=== PATIENT | male | born 1980 | race Caucasian/White ===

== ENCOUNTER 2017-12-29 13:56 | Emergency (ER) | payer BC, SELFPAY ==
[2017-12-29 13:57] VITALS: BP 147/95; PULSE 99; RESP 16; TEMP 37.2; O2SAT 100; BMI 26.6
--- NOTE | 2017-12-29 14:15 | RAD_ITS ---
STUDY: X-RAY - RIGHT WRIST REASON FOR EXAM: Male, 37 years old. Fall. Pain to TECHNIQUE: 3 view(s) of the wrist were obtained. COMPARISON: None. FINDINGS: There is no evidence of fracture or dislocation. There are no significant degenerative changes. There are no radiodense foreign bodies. RAD/Wrist min 3 Views IMPRESSION: No fracture or dislocation. Electronically Signed: Maurizio Holloway, at 15:15 EDT Tel , Service support ,
--- NOTE | 2017-12-29 14:56 | ED.VISSUMM ---
- ER Visit Summary Date of Service: 12/29/17 Chief Complaint: Right wrist pain History of Present Illness: The patient is a 37 M who is right-hand dominant presents with right wrist pain after falling last evening while skateboarding with children. He denies paresthesia, anesthesia or motor weakness. He does complain of swelling of his wrist. He denies injury to his fingers or elbow. He denies history of prior injury. He has no other complaints. Physical Examination: There is swelling of the right wrist. There is no pain palpation over the anatomical snuffbox or with extraluminal thumb. There is pain palpation over the carpal bones and there is fullness/effusion noted. There is no pain abrasion over the distal radius or ulna. There is no pain palpation over the metacarpal bones or phalanges. Median, radial and ulnar function intact. Capillary refill is normal. No subungual hematoma of any digits. Test Results: Three-view x-ray of the wrist was obtained with no evidence of fracture, subluxation or dislocation. There is no volar fat pad noted. Emergency Department Course and Treatment: X-ray was obtained to evaluate for carpal bone fracture or proximal metacarpal fracture. Clinically patient does not have a navicular fracture. Treatment Plan: Cock-up splint anti-inflammatories rest and ice Disposition: Discharge to follow-up with Dr. Alonzo Burleson Impression: Right wrist sprain status post fall initial encounter This note was generated with [employer] dictation software. It may contain incorrect words, spelling, and punctuation that were not noted in review of the chart prior to signing ED Disposition - Plan for ED Patient: Disposition: Home or Assisted Living Chief Complaint: Upper Extremity Injury Instructions: ED Sprain Wrist Referrals: Marilyn Mock NP-C [Primary Care Provider] - Alonzo Burleson MD [STAFF PHYSICIAN] - 5-7 Days Additional Instructions: Take either 4 Advil every 8 hours or 2 Aleve every 12 hours for the next 3-5 days for pain. Wear splint during the day for comfort and immobilization.
== END 2017-12-29 15:25 | disposition home or self-care (01) ==
PROVIDERS: Emergency Provider Emergency Medicine; PCP Nurse Practitioner Family
DX: S63.501A Unspecified sprain of right wrist, initial encounter (principal); V00.131A Fall from skateboard, initial encounter; Y93.51 Activity, roller skating (inline) and skateboarding; Y92.9 Unspecified place or not applicable; Z87.891 Personal history of nicotine dependence
CPT/HCPCS: 73110; 99282

== ENCOUNTER → 2019-06-17 16:04 | Outpatient (CLI) | payer OTHER, MEDICAID, SELFPAY ==
[2019-06-17 17:57] LABS: Hemoglobin 14.1 g/dL (13.0-16.5); Mean Corp Hgb Conc 32.8 g/dL (32-36); Mean Corpuscular Hgb 31.3 pg (27.0-32.0); Mean Corpuscular Volume 95.3 fL (80-94); Mean Platelet Vol. 9.6 fl (6.2-12.0); Platelet Count 345 K/mm3 (150-450); RBC Distribution Width CV 14.1 % (11.6-14.6); RBC Distribution Width SD 49.8 fl (35.1-43.9); Red Blood Count 4.51 M/mm3 (4.6-6.2); White Blood Count 9.9 K/mm3 (4.4-11.0)
[2019-06-17 18:14] LABS: Erythrocyte Sedimentation Rate 21 mm/hr (0-15)
[2019-06-17 18:21] LABS: CRP < 2.90 mg/L (0.0-3.0)
== END ==
PROVIDERS: PCP Nurse Practitioner Family; Referring Provider Internal Medicine Gastroenterology; Visit Provider Internal Medicine Gastroenterology
DX: K50.90 Crohn's disease, unspecified, without complications (principal); K52.9 Noninfective gastroenteritis and colitis, unspecified
CPT/HCPCS: 36415; 85027; 85652; 86140

== ENCOUNTER → 2020-09-02 15:48 | Outpatient (CLI) | payer MEDICAID, SELFPAY ==
[2020-09-05 10:37] LABS: Hepatitis B Surface Antigen Non-Reactive (Nonreactive)
[2020-09-07 03:06] LABS: QNTFERON TB Mitogen Value 0.18 IU/mL (.); QNTFERON TB Nil Value 0 IU/mL (.); QNTFERON TB1+ Ag Value 0 IU/mL (.); QNTFERON TB2+ Ag Value 0 IU/mL (.)
[2020-09-07 13:37] LABS: QNTIFERON TB Positive Criteria Indeterminate (Negative)
== END ==
PROVIDERS: PCP Nurse Practitioner Family; Referring Provider Internal Medicine Gastroenterology; Visit Provider Internal Medicine Gastroenterology
DX: K50.90 Crohn's disease, unspecified, without complications (principal)
CPT/HCPCS: 36415; 86480; 87340

== ENCOUNTER → 2020-10-03 13:48 | Outpatient (CLI) | payer MEDICAID, SELFPAY ==
--- NOTE | 2020-10-03 13:50 | VDLE_ITS ---
Reason For Study: Lt posterior leg pain RIGHT LEFT CFV is compressible, spontaneous, phasic, GSV is normal. competent and demonstrates normal CFV is compressible, spontaneous, phasic, augmentation. competent, and demonstrates normal Procedure augmentation. This is a venous duplex using B-mode, color FV prox-mid is compressible with normal flow and spectral Doppler. venous flow. Exam performed in department. Acute deep vein thrombosis is noted in the A preliminary report was called and/or faxed Left FV distal, PopV, T/P trunk, PreoV, PTV to Martha GREEN. Pt taken to ED for further and SoleusV. testing. VL/Venous Duplex US, Unilateral Interpretation Summary Acute deep vein thrombosis is noted in the distal left femoral vein. Acute deep vein thrombosis is noted in the left popliteal vein. Acute deep vein thrombosis is noted in the le ft tibio-peroneal trunk. Acute deep vein thrombosis is noted in the left peroneal vein. Acute scotty p vein thrombosis is noted in the left posterior tibial vein. Acute deep vein thrombosis is noted in the left soleus vein. The left common femoral vein and proximal and mid-femoral vein are patent and compressible. The left great saphenous vein is patent and compressible. Ordering Physician: Marilyn Mock Referring Physician: Marilyn Mock Performed By: Randi Chapman RVT and Student
== END ==
PROVIDERS: PCP Nurse Practitioner Family; Referring Provider Nurse Practitioner Family; Visit Provider Nurse Practitioner Family
DX: I26.99 Other pulmonary embolism without acute cor pulmonale (principal); I82.412 Acute embolism and thrombosis of left femoral vein; I82.432 Acute embolism and thrombosis of left popliteal vein; I82.452 Acute embolism and thrombosis of left peroneal vein; I82.442 Acute embolism and thrombosis of left tibial vein; I82.462 Acute embolism and thrombosis of left calf muscular vein; K50.90 Crohn's disease, unspecified, without complications; D64.9 Anemia, unspecified; I25.2 Old myocardial infarction; Z79.52 Long term (current) use of systemic steroids; Z79.899 Other long term (current) drug therapy
CPT/HCPCS: 71275; 80048; 82274; 84484; 85025; 85610; 85730; 87426; 93005; 93971; 96361; 96374; 96375; 99285; J7040; Q9967; A4216

== ENCOUNTER 2020-10-03 14:46 | Emergency (ER) | payer MEDICAID, SELFPAY ==
[2020-10-03 14:47] VITALS: BP 106/68; PULSE 98; RESP 18; TEMP 36.2; O2SAT 97; BMI 25.0
--- NOTE | 2020-10-03 15:51 | CT_ITS ---
HISTORY: sob, LLE acute DVT EXAMINATION: CTA Chest WO/W Contrast Injection TECHNIQUE: Helically acquired images were obtained of the chest following IV contrast as per pulmonary angiogram protocol with 3D reconstructions. A radiation dose optimization technique was used for this scan. IV Contrast dosage and agent: IV 100mL [id number]-[id number] COMPARISON: None FINDINGS: LUNGS, PLEURA AND LARGE AIRWAYS: No masses, consolidation, or edema. No pleural effusion or thickening. No pneumothorax. THYROID: No thyroid lesions. PULMONARY ARTERIES: Normal in caliber. Filling defects in segmental branches to the right upper and left lower lobes. AORTA AND GREAT VESSELS: No aneurysm or dissection. HEART AND PERICARDIUM: Heart size is normal. No pericardial effusion. MEDIASTINUM AND MELISSA: No mediastinal or hilar adenopathy. Esophagus is unremarkable. No hiatal hernia. UPPER ABDOMEN: No acute pathology. Bilateral adrenal nodules 2.9 cm on the right, 1.6 cm on the left. BONES: No acute or aggressive abnormality. CT/CTA Chest W/WO Contrast IMPRESSION: Study positive for pulmonary embolism. Individualized dose optimization techniques were used for this CT. at 7505 Reported and signed by: Jose Valle MD N.B. : The above Results were Read Back by Jose Valle MD to Dr. Reinaldo Lara MD, and understanding confirmed on 10/03/2020 17:37:35 (ET). Electronically Signed: Jose Valle MD at 17:34 EDT Tel , Service support ,
--- NOTE | 2020-10-03 15:52 | EKG12_ITS ---
Test Reason : Blood Pressure : / mmHG Vent. Rate : 083 BPM Atrial Rate : 083 BPM P-R Int : 148 ms QRS Dur : 094 ms QT Int : 382 ms P-R-T Axes : 024 -15 061 degrees QTc Int : 448 ms Normal sinus rhythm Possible Left atrial enlargement Incomplete right bundle branch block Left ventricular hypertrophy Nonspecific T wave abnormality Abnormal ECG Confirmed by GINGER DASILVA, JASON ([id number]), editor continuity and script VALENTIN CHOPRA ([id number]) on 10/05/2020 9:28:22 AM Referred By: EDPHYS Confirmed By:JASON MILES MD
--- NOTE | 2020-10-03 15:53 | EDS_ITS ---
HPI History of Present Illness Chief Complaint: Shortness of Breath Informant: patient Narrative Narrative: Patient sent over from radiology department with acute left lower extremity DVT rule out PE. Discharged from [facility] a week ago for Crohn's flare currently on steroids. No current rectal bleeding. He states initially admitted at [facility] 2 to 3 weeks ago for concerns of NM he did have a heart cath that was negative. History of hypertension. States he is transferred due to no GI physician at [facility]. He was not on DVT prophylaxis medications due to his bleeding issues. He reports he did have SCDs. After leaving the hospital developed pain in his left lower extremity behind his knee. Saw his PCP who ordered for an ultrasound today. Report was sent over the patient noting acute DVT left FV distal, popliteal vein, TP trunk, preOV, PTV, SoleusV. He reports he has been having dyspnea since then worse with exertion. Denies history of blood clots in the past. Denies recent travel. He had a heart cath 2 to 3 weeks ago, and being treated for his Crohn's. Prior similar symptoms: No PFSH PFSH Medical History (Updated 10/03/20 @ 21:[address] Reinaldo Lara DO) Crohn's disease DVT (deep venous thrombosis) Past heart attack Home Medications levothyroxine 125 mcg PO DAILY 01/17/15 [History Last Taken 12/29/17] multivitamin [Daily Multiple Vitamin] 1 ea PO DAILY 09/16/15 [History Last Taken 12/29/17] mesalamine [Apriso] 1 cap PO DAILY 01/31/17 [History Last Taken 12/29/17] mercaptopurine 50 mg PO DAILY 12/29/17 [History Last Taken 12/29/17] ustekinumab [Stelara] 90 mg IM DAILY 12/29/17 [History Last Taken 10/30/17] cyclobenzaprine 5 mg PO PRN PRN 10/03/20 [History Last Taken Unknown] dicyclomine 20 mg PO PRN PRN 10/03/20 [History Last Taken Unknown] diltiazem HCl 240 mg PO DAILY 10/03/20 [History Last Taken Unknown] indapamide 2.5 mg PO DAILY 10/03/20 [History Last Taken Unknown] losartan 50 mg PO DAILY 10/03/20 [History Last Taken Unknown] metoprolol succinate 25 mg PO DAILY 10/03/20 [History Last Taken Unknown] prednisone 10 mg PO DAILY 10/03/20 [History Last Taken Unknown] Allergy/AdvReac Type Severity Reaction Status Date / Time Penicillins Allergy Hives Verified 10/03/20 14:49 Social History Smoking Status: Never smoker ROS ROS ED Constitutional Constitutional ED: Denies chills, fever(s) or sweats Eyes Eyes: Denies change in vision ENT ENT ED: Denies dysphagia or sore throat Cardiovascular Cardiovascular: Denies chest pain, leg edema, palpitations or racing heartbeat Respiratory/Chest Respiratory/Chest: Reports cough and dyspnea; Denies dyspnea on exertion Gastrointestinal Gastrointestinal: Denies abdominal pain, diarrhea, nausea or vomiting Genitourinary Genitourinary ED: Denies dysuria, hematuria or urinary frequency Musculoskeletal Musculoskeletal: Reports other Details: Left leg pain with DVT ; Denies back pain, extremity pain or neck pain Integumentary Denies rash or wounds Neurologic Neurologic: Denies headache(s), paresthesias or weakness EXAM Physical Exam Const Vital Signs: 10/03/20 14:47 10/03/20 16:10 10/03/20 18:00 Temperature 97.1 F L Temperature Source Temporal Pulse Rate 98 83 71 Respiratory Rate 18 14 17 Blood Pressure 106/68 118/74 126/72 H Blood Pressure Mean 80 88 90 Pulse Ox 97 97 96 Oxygen Delivery Method Room Air Room Air Room Air 10/03/20 20:00 Temperature Temperature Source Pulse Rate 87 Respiratory Rate 15 Blood Pressure 135/84 H Blood Pressure Mean 101 Pulse Ox 97 Oxygen Delivery Method Room Air Positive well nourished and well developed General Appearance ED: well developed and NAD HEENT Reports moist mucous membranes normocephalic and atraumatic Eyes PERRL, EOMs intact bilaterally and conjunctivae normal General Eye ED: Yes normal appearance of both eyes Neck no lymphadenopathy and supple General: Negative for tenderness Chest Wall Chest: Negative for tenderness Resp normal respiratory effort and normal air movement Effort and Inspection: symmetric chest movement; Negative for respiratory distress Cardio regular rate, regular rhythm and no murmurs Peripheral Pulses: pulses 2+ throughout GI normal to inspection, nondistended, normoactive bowel sounds and non-tender Palpation: Negative for guarding or rebound tenderness present Back/Spine no CVA tenderness and no thoracic nor lumbar tenderness Extremity normal to inspection Extremity Narrative: Left lower extremity: No swelling and pulses intact there is tenderness popliteal region. General Extremety ED: Negative for edema or tenderness General Extremity: Negative for edema Neuro oriented x3 and no sensory deficits noted Sensorium / Orientation: awake and alert Skin no rashes or lesions noted and no wounds MDM MDM MDM Narrative Medical decision making narrative: Patient vital signs stable pulse ox normal no respiratory distress. Ultrasound confirming left lower extremity DVT. He was sent for laboratory studies hemoglobin 9.8 down from 14 in June of last year. From reported history a recent Crohn's flare with GI bleed. He states he was not transfused blood. Rectal exam with no bloody stools however Hemoccult was positive. CTA chest resulted discussion radiology segmental PE right upper lobe and left lower lobe. There is no heart strain. His troponin was negative. Due to his Hemoccult positive and current treatment with his Crohn's, I did not start anticoagulation due to high risk for GI bleed. With patient's age at 39, Crohn's history with both DVT and PE, do feel he will benefit from higher level of care. He was down at [facility] for his Crohn's flare, I spoke with transfer line regarding his recent work-up and current findings. They reported he had a hemoglobin of 8.4 on their discharge which is lower than currently. He was not transfused there. Hemodynamically stable. He is accepted to [facility] medicine service to [facility] in [place]. Patient family updated. Lab Data Attestation: I reviewed the patient's lab results. Labs: Laboratory Results - last 24 hr 10/03/20 10/03/20 10/03/20 15:45 15:45 16:12 WBC 10.7 RBC 3.21 L Hgb 9.8 L Hct 33.1 L MCV 103.1 H MCH 30.5 MCHC 29.6 L RDW Std Deviation 82.9 H RDW Coeff of Christoph 22.6 H Plt Count 417 MPV 8.7 Neut % (Auto) Not Reportable Absolute Neuts (auto) 8.4 H Absolute Lymphs (auto) 1.72 Neutrophils % (Manual) 66 Band Neutrophils % 14 H Lymphocytes % (Manual) 16 L Monocytes % (Manual) 1 Metamyelocytes % 1 Myelocytes % 2 H Diff Path Review May foll Atypical Lymphocytes 3+ Platelet Estimate ADEQUATE RBC Morphology NORM C+C Polychromasia 2+ PT 13.1 INR 1.1 APTT 31.9 Sodium 133 L Potassium 4.8 Chloride 97 L Carbon Dioxide 28.0 Anion Gap 8 BUN 17 Creatinine 0.95 Estim Creat Clear Calc 112.32 Est GFR (MDRD) Af Amer 112 Est GFR (MDRD) Non-Af 93 BUN/Creatinine Ratio 17.9 Glucose 137 H Calcium 11.0 H Troponin I < 0.015 Radiography Diagnostic Testing: Radiology Impression Chest CTA 10/03/20 15:51 IMPRESSION: Study positive for pulmonary embolism. Individualized dose optimization techniques were used for this CT. at 1735 Reported and signed by: Jose Valle MD N.B. : The above Results were Read Back by Jose Valle MD to Dr. Reinaldo Lara MD, and understanding confirmed on 10/03/2020 17:37:35 (ET). Electronically Signed: Jose Valle MD at 17:34 EDT Tel , Service support , ADDENDUM: 10/03/20 184 IMPRESSION: Study positive for pulmonary embolism. Individualized dose optimization techniques were used for this CT. at 1735 Reported and signed by: Jose Valle MD N.B. : The above Results were Read Back by Jose Valle MD to Dr. Reinaldo Lara MD, and understanding confirmed on 10/03/2020 17:37:35 (ET). Electronically Signed: Jose Valle MD at 17:34 EDT Tel , Service support , ADDENDUM: 10/03/20 184 IMPRESSION: Study positive for pulmonary embolism. Individualized dose optimization techniques were used for this CT. at 1735 Reported and signed by: Jose Valle MD Electronically Signed: Jose Valle MD at 17:57 EDT Tel , Service support , N.B. : The above Results were Read Back by Jose Valle MD to Dr. Reinaldo Lara MD, and understanding confirmed on 10/03/2020 17:37:35 (ET). ADDENDUM: 10/03/20 184 IMPRESSION: Study positive for pulmonary embolism. Individualized dose optimization techniques were used for this CT. at 1735 Reported and signed by: Jose Valle MD Electronically Signed: Jose Valle MD at 17:57 EDT Tel , Service support , N.B. : The above Results were Read Back by Jose Valle MD to Dr. Reinaldo Lara MD, and understanding confirmed on 10/03/2020 17:37:35 (ET). ADDENDUM: 10/03/20 184 IMPRESSION: Study positive for pulmonary embolism. Individualized dose optimization techniques were used for this CT. at 1735 Reported and signed by: Jose Valle MD Electronically Signed: Jose Valle MD at 17:57 EDT Tel , Service support , N.B. : The above Results were Read Back by Jose Valle MD to Dr. Reinaldo Lara MD, and understanding confirmed on 10/03/2020 17:37:35 (ET). ADDENDUM: 10/03/20 1849 IMPRESSION: Study positive for pulmonary embolism. Individualized dose optimization techniques were used for this CT. at 1735 Reported and signed by: Jose Valle MD Electronically Signed: Jose Valle MD at 17:57 EDT Tel , Service support , N.B. : The above Results were Read Back by Jose Valle MD to Dr. Reinaldo Lara MD, and understanding confirmed on 10/03/2020 17:37:35 (ET). EKG Initial EKG: Attestation: I personally reviewed and interpreted this EKG as follows: Comments: Sinus rate of 83, no ST changes, isolated T wave inversion in aVL. Nonspecific. Discharge Plan Triage Chief Complaint: Shortness of Breath ED Provider: Reinaldo Lara Dx/Rx/DC Orders Clinical Impression: Pulmonary embolism, Acute deep vein thrombosis (DVT) of left lower extremity, History of Crohn's disease, Anemia Prescriptions: No Action levothyroxine 125 MCG tablet 125 mcg PO DAILY RF: 0 multivitamin [Daily Multiple] 1 EACH tablet 1 ea PO DAILY RF: 0 mesalamine [Apriso] 375 MG Cap.Er.24h 1 cap PO DAILY RF: 0 mercaptopurine 50 MG tablet 50 mg PO DAILY RF: 0 ustekinumab [Stelara] 90 MG/M syringe 90 mg IM DAILY RF: 0 losartan 50 mg tablet 50 mg PO DAILY RF: 0 prednisone 10 mg tablet 10 mg PO DAILY RF: 0 indapamide 2.5 mg tablet 2.5 mg PO DAILY RF: 0 diltiazem HCl 240 mg capsule,extended release 24hr 240 mg PO DAILY RF: 0 dicyclomine 20 mg tablet 20 mg PO PRN PRN (Reason: Cramps) RF: 0 metoprolol succinate 25 mg tablet extended release 24 hr 25 mg PO DAILY RF: 0 cyclobenzaprine 5 mg tablet 5 mg PO PRN PRN (Reason: Pain) RF: 0 Primary Care Provider: Marilyn Mock NP Referrals: Marilyn Mock NP, SETUP TECHNICIAN-C [Primary Care Provider] - Disposition Disposition: Transfer to another type [facility]
[2020-10-03 16:07] LABS: Hematocrit 33.1 % (40-54); Hemoglobin 9.8 g/dL (13.0-16.5); Mean Corp Hgb Conc 29.6 g/dL (32-36); Mean Corpuscular Hgb 30.5 pg (27.0-32.0); Mean Corpuscular Volume 103.1 fL (80-94); Mean Platelet Vol. 8.7 fl (6.2-12.0); POSITIVE COUNT YES; POSITIVE MORPHOLOGY YES; Platelet Count 417 K/mm3 (150-450); RBC Distribution Width CV 22.6 % (11.6-14.6); RBC Distribution Width SD 82.9 fl (35.1-43.9); Red Blood Count 3.21 M/mm3 (4.6-6.2); White Blood Count 10.7 K/mm3 (4.4-11.0)
[2020-10-03 16:10] VITALS: BP 118/74; PULSE 83; RESP 14; O2SAT 97
[2020-10-03 16:14] LABS: Differential Indicated MANUAL DIFF
[2020-10-03] MEDS: Acetaminophen 500 MG Tablet 1000 MG PO (16:21)
[2020-10-03 16:29] LABS: Absolute Lymphocyte Count 1.72 X10^3/uL (0.83-4.51); Absolute Neutrophil Count 8.4 X10^3/uL (2.0-7.7); Metamyelocyte 1 % (0-1); Neutrophil-Band 14 % (0-5); Neutrophil-Segmented 66 % (47-70)
[2020-10-03 16:30] LABS: Atypical Lymphocyte 3+ %; Lymphocyte 16 % (19-41); Monocyte 1 % (0-10); Myelocyte 2 % (0-0); Platelet Estimate ADEQUATE (ADEQ)
[2020-10-03 16:31] LABS: Polychromasia 2+; Red Cell Morphology NORM C+C NORMAL (NORM C&C)
[2020-10-03 16:32] LABS: Anion Gap 8 (5-15); BUN 17 mg/dL (7-18); BUN/Creat Ratio 17.9 RATIO (10-20); Chloride 97 mmol/L (98-107); Creatinine, Serum 0.95 mg/dL (0.70-1.30); EST Glomerular Filtration Rate 93 mL/min (>60); Est Glom Filt Rate - Afr Amer 112 mL/min (>60); Estimated Creatinine Clearance 112.32 ml/min; Glucose 137 mg/dL (74-106); Potassium 4.8 mmol/L (3.5-5.1); Sodium Level 133 mmol/L (136-145)
[2020-10-03 16:58] LABS: International Normalized Ratio 1.1; Prothrombin Time (Protime)PT. 13.1 SECONDS (11.7-14.9)
[2020-10-03 16:59] LABS: Partial Thromboplast Time 31.9 Seconds (24.1-36.2)
[2020-10-03 18:00] VITALS: BP 126/72; PULSE 71; RESP 17; O2SAT 96
[2020-10-03 20:00] VITALS: BP 135/84; PULSE 87; RESP 15; O2SAT 97
[2020-10-03] MEDS: Morphine 4 MG/ML Syringe IV (21:02)
[2020-10-03 21:41] VITALS: BP 132/80; PULSE 88; RESP 20; O2SAT 96
[2020-10-03 22:00] VITALS: BP 133/83; PULSE 92; RESP 15; O2SAT 98
[2020-10-03] MEDS: fentaNYL 100 MCG/2 ML Ampul 50 MCG IV (22:43)
--- NOTE | 2020-10-03 23:21 | ED.RN ---
PER [place] NURSE WHO SPOKE TO [facility] [employer], DO NOT NEED TO CALL REPORT. PER [place] STAFF, REPORT WAS CALLED EARLIER BY NORMA OBANDO. [facility] WILL BE GIVEN REPORT ONCE THEY ARRIVE TO [facility].
[2020-10-04] VITALS: BP 146/82; PULSE 82; RESP 20; O2SAT 96
[2020-10-04 11:59] LABS: Pathologist Review Reviewed
== END 2020-10-04 00:38 | disposition other institution (70) ==
PROVIDERS: Emergency Provider Emergency Medicine; PCP Nurse Practitioner Family
DX: I26.99 Other pulmonary embolism without acute cor pulmonale (principal); I82.412 Acute embolism and thrombosis of left femoral vein; I82.432 Acute embolism and thrombosis of left popliteal vein; I82.452 Acute embolism and thrombosis of left peroneal vein; I82.442 Acute embolism and thrombosis of left tibial vein; I82.462 Acute embolism and thrombosis of left calf muscular vein; K50.90 Crohn's disease, unspecified, without complications; D64.9 Anemia, unspecified; I25.2 Old myocardial infarction; Z79.52 Long term (current) use of systemic steroids; Z79.899 Other long term (current) drug therapy
CPT/HCPCS: 71275; 80048; 82274; 84484; 85025; 85610; 85730; 87426; 93005; J7040; Q9967; A4216

== ENCOUNTER → 2020-10-12 10:41 | Outpatient (CLI) | payer MEDICAID, SELFPAY ==
[2020-10-03 14:47] VITALS: BMI 25.0
[2020-10-12 12:19] LABS: Hematocrit 36.3 % (40-54); Hemoglobin 10.6 g/dL (13.0-16.5); Mean Corp Hgb Conc 29.2 g/dL (32-36); Mean Corpuscular Hgb 30.8 pg (27.0-32.0); Mean Corpuscular Volume 105.5 fL (80-94); Mean Platelet Vol. 8.9 fl (6.2-12.0); POSITIVE MORPHOLOGY YES; Platelet Count 424 K/mm3 (150-450); RBC Distribution Width CV 21.2 % (11.6-14.6); RBC Distribution Width SD 81.5 fl (35.1-43.9); Red Blood Count 3.44 M/mm3 (4.6-6.2); White Blood Count 15.3 K/mm3 (4.4-11.0)
[2020-10-12 12:30] LABS: Iron 60 ug/dL (65-175)
[2020-10-12 12:31] LABS: Scan Indicated on CBC? Y/N YES- FLAGS NOTED
[2020-10-12 12:37] LABS: Erythrocyte Sedimentation Rate 97 mm/hr (0-20)
[2020-10-12 12:42] LABS: Differential Comment SCANNED
== END ==
PROVIDERS: PCP Nurse Practitioner Family; Referring Provider Internal Medicine Gastroenterology; Visit Provider Internal Medicine Gastroenterology
DX: K51.90 Ulcerative colitis, unspecified, without complications (principal)
CPT/HCPCS: 36415; 83540; 85027; 85652; 86140

== ENCOUNTER 2021-06-21 10:43 | Emergency (ER) | payer MEDICAID, SELFPAY ==
[2021-06-21 10:44] VITALS: BP 135/98; PULSE 100; RESP 17; TEMP 36.4; O2SAT 100; BMI 28.2
--- NOTE | 2021-06-21 11:03 | CT_ITS ---
EXAM: CT ABDOMEN AND PELVIS WITHOUT INTRAVENOUS CONTRAST CLINICAL INDICATION: Pain TECHNIQUE: Helically acquired images were obtained of the abdomen and pelvis without intravenous contrast. This CT exam was performed using one or more of the following dose reduction techniques: automated exposure control, adjustment of the mA and/or kV according to patient size, and/or use of iterative reconstruction technique. This report was created using [employer] report generation technology. COMPARISON: CTA chest 10/03/2020. FINDINGS: LOWER THORAX: Unremarkable. Lung bases are clear. No cardiomegaly. No significant pericardial effusion. ABDOMEN: LIVER: Unremarkable. Homogeneous. GALLBLADDER AND BILE DUCTS: Unremarkable. No calcified gallstones. No gallbladder distention or wall edema. No intra- or extrahepatic biliary ductal dilation. PANCREAS: Unremarkable. No focal cystic mass. SPLEEN: Unremarkable. Normal size without focal cystic or solid mass. ADRENALS: 2.8 x 2.2 cm right adrenal mass and 1.5 x 1 cm left adrenal mass. KIDNEYS AND URETERS: 7.8 x 5.4 mm partially obstructing calculus in the left UPJ causing minimal left hydronephrosis. 4 mm nonobstructing calculus in the left lower renal pole and the adjacent 2 mm nonobstructing calculus in the left lower renal pole. 2 mm nonobstructing calculus in the mid portion of the left kidney and 1 mm nonobstructing calculus in the left upper renal infundibulum. Ill-defined round hypodensity in the left upper renal parenchyma is presumably cyst. This is unchanged. 1 mm nonobstructing calculus in the middle infundibulum of right kidney. No right hydronephrosis. STOMACH AND BOWEL: Unremarkable. No stomach or bowel distention. No focal inflammatory change. PELVIS: APPENDIX: Normal. BLADDER: Unremarkable. REPRODUCTIVE: Unremarkable as visualized. No mass. ABDOMEN and PELVIS: INTRAPERITONEAL SPACE: Unremarkable. No ascites or other fluid collection. No free air. BONES/JOINTS: Pronounced L5-S1 disc space height narrowing with endplate sclerosis and degenerative vacuum phenomenon. Minimal escape of degenerative vacuum phenomenon behind the lower L5 vertebral body is suggestive of posterior annular tear. Moderately pronounced stenosis of the right L5-S1 intervertebral neural foramen and moderate stenosis of the left L5-S1 intervertebral neural foramen. No suspicious lytic or blastic abnormality. SOFT TISSUES: Unremarkable. No discrete abdominal or pelvic wall hernia. VASCULATURE: Unremarkable. Abdominal aorta is non-dilated. LYMPH NODES: Unremarkable. No enlarged lymph nodes. CT/Abdomen/Pelvis without Cont IMPRESSION: 1. 7.8 x 5.4 mm partially obstructing calculus in the left UPJ causing minimal left hydronephrosis. 2. 4 mm and 2 mm adjacent nonobstructing calculi in the left lower renal pole, 2 mm nonobstructing calculus in the midportion of the left kidney and 1 mm nonobstructing calculus in the left upper renal infundibulum. 3. 1 mm nonobstructing calculus in the middle infundibulum the right kidney. No hydronephrosis. 4. 2.8 x 2.2 cm solid mass in the right adrenal gland and 1.5 x 1 cm solid mass in the left adrenal gland. This is unchanged when compared to CTA chest of 10/03/2020. ACR White Paper guidelines (Gustavo et al. JACR 2017; 14(8):9760-8897) recommend a low dose, non-contrast adrenal CT or chemical-shift adrenal MRI follow-up study. 5. Ill-defined hypodense lesion in the left upper renal parenchyma is presumably cyst. This has a CT number of 12.80 [place] units. This is unchanged. ACR White Paper guidelines (Herts, et al. JACR 2018; 15(2):264-273) suggest no follow-up is necessary. 6. Pronounced L5-S1 disc space height narrowing with endplate sclerosis, posterior annular tear with minimal escape of degenerative vacuum phenomenon behind the lower L4 vertebral body, moderately pronounced stenosis of the right L5-S1 intervertebral neural foramen and moderate stenosis of the left L5-S1 intervertebral neural foramen. Electronically Signed: Vernon Willard MD at 11:53 EST ,
[2021-06-21 11:05] VITALS: BP 135/98; PULSE 100; RESP 17; TEMP 36.4; O2SAT 100
[2021-06-21] MEDS: 0.9% Normal Saline 1,000 ML 1000 ML IV (11:13)
[2021-06-21 11:14] LABS: Mucous, Urine 0 SEEN /hpf (<or=2+); White Blood Cells 0 SEEN /hpf (0-5)
[2021-06-21 11:15] LABS: Absolute Lymphocyte Count 2.06 X10^3/uL (0.83-4.51); Basophil# 0.05 X10^3/uL; Basophil% 0.6 % (0-1); Eosinophil# 0.06 X10^3/uL; Eosinophils% 0.7 % (0-5); Hematocrit 47.7 % (40-54); Hemoglobin 15.9 g/dL (13.0-16.5); Lymphocyte # 2.06 X10^3/ul (0.83-4.51); Mean Corp Hgb Conc 33.3 g/dL (32-36); Mean Corpuscular Hgb 31.8 pg (27.0-32.0); Mean Corpuscular Volume 95.4 fL (80-94); Mean Platelet Vol. 9.1 fl (6.2-12.0); Monocyte# 0.71 X10^3/uL; Monocyte% 7.9 % (0-10); NRBC Flagged by Analyzer 0 % (0-5); Neutrophil # 6.03 X10^3/uL (2.7-7.7); Neutrophil % 67.5 % (47-70); Platelet Count 328 K/mm3 (150-450); RBC Distribution Width CV 14.9 % (11.6-14.6); RBC Distribution Width SD 52.8 fl (35.1-43.9); White Blood Count 8.9 K/mm3 (4.4-11.0)
[2021-06-21 11:17] LABS: Color, Urine Amber (Yellow); Glucose, Dipstick Normal (Normal); Ketone-Dipstick 5 mg/dl (Negative); Leukocyte Esterase-Dipstick 25 /ul (Negative); Nitrite-Dipstick Negative (Negative); Occult Blood-Urine 250 /ul (Negative); Protein-Dipstick 100 mg/dl (Negative); Specific Gravity, Urine 1.015 (1.002-1.030); Urine Bilirubin Dipstick Negative (Negative); Urine Clarity Cloudy (Clear); Urine Urobilinogen Normal (Normal)
--- NOTE | 2021-06-21 11:20 | EDS_ITS ---
HPI History of Present Illness Chief Complaint: Flank Pain Informant: patient Narrative Narrative: Patient presents with concern for kidney stone. He states about 2 to 2-1/2 weeks ago he noticed his urine was a little bit darker but not bloody. Over the last couple days he has had what looks to be blood in the urine. He has had some very mild pain in the right flank that radiates to the groin. However he states the pain really is not bad at all. He has had a kidney stone before and that was a concern. However, he also has Crohn's disease. When he has exacerbation of Crohn's the pain is usually not right lower quadrant but more in his epigastric area. He is not having that now. He states his bowel habits are his normal. There is no blood in the stool. He does not feel as though this is likely in an exacerbation of his Crohn's. Nothing consistently makes his current symptoms better or worse. [facility] Medical History Crohn's disease DVT (deep venous thrombosis) Past heart attack Home Medications levothyroxine 125 mcg PO DAILY 01/17/15 [History Last Taken 12/29/17] multivitamin [Daily Multiple Vitamin] 1 ea PO DAILY 09/16/15 [History Last Taken 12/29/17] mesalamine [Apriso] 1 cap PO DAILY 01/31/17 [History Last Taken 12/29/17] mercaptopurine 50 mg PO DAILY 12/29/17 [History Last Taken 12/29/17] ustekinumab [Stelara] 90 mg IM DAILY 12/29/17 [History Last Taken 10/30/17] cyclobenzaprine 5 mg PO PRN PRN 10/03/20 [History Last Taken Unknown] dicyclomine 20 mg PO PRN PRN 10/03/20 [History Last Taken Unknown] diltiazem HCl 240 mg PO DAILY 10/03/20 [History Last Taken Unknown] indapamide 2.5 mg PO DAILY 10/03/20 [History Last Taken Unknown] losartan 50 mg PO DAILY 10/03/20 [History Last Taken Unknown] metoprolol succinate 25 mg PO DAILY 10/03/20 [History Last Taken Unknown] prednisone 10 mg PO DAILY 10/03/20 [History Last Taken Unknown] ondansetron 4 mg PO Q8H PRN #10 tab 06/21/21 [Rx Last Taken Unknown] oxycodone-acetaminophen [Percocet] 1 tab PO Q6H PRN 3 Days #10 tab 06/21/21 [Rx Last Taken Unknown] tamsulosin [Flomax] 0.4 mg PO DAILY #7 cap 06/21/21 [Rx Last Taken Unknown] Allergy/AdvReac Type Severity Reaction Status Date / Time Penicillins Allergy Hives Verified 06/21/21 10:44 Social History Smoking Status: Never smoker ROS ROS ED Constitutional Constitutional ED: Denies chills, fever(s), subjective or sweats ENT ENT ED: Denies rhinorrhea Cardiovascular Cardiovascular: Denies chest pain or palpitations Respiratory/Chest Respiratory/Chest: Denies cough or dyspnea Gastrointestinal Gastrointestinal: Reports abdominal pain; Denies constipation, diarrhea, melena, nausea or vomiting Genitourinary Genitourinary ED: Reports hematuria; Denies dysuria or urinary frequency Musculoskeletal Musculoskeletal: Reports back pain; Denies arthralgias or myalgias Integumentary Denies rash Neurologic Neurologic: Denies headache(s) Psychiatric Psychiatric: Reports depression Endocrine Endocrinology: Denies polydipsia or polyuria Allergic/Immunologic Allergic/Immunologic ED: Denies mouth swelling or urticaria EXAM Physical Exam Const Vital Signs: 06/21/21 10:44 06/21/21 11:05 06/21/21 11:07 Temperature 97.6 F L 97.6 F L Temperature Source Temporal Temporal Pulse Rate 100 100 Respiratory Rate 17 17 Respiratory Effort Normal Non-Labored Respiratory Pattern Normal Blood Pressure 135/98 H 135/98 H Blood Pressure Mean 110 110 Pulse Ox 100 100 Oxygen Delivery Method Room Air Room Air Positive well nourished and well developed General Appearance ED: well developed and NAD; Negative for cyanotic or diaphoretic HEENT Reports moist mucous membranes Eyes General Eye ED: Negative for pale conjunctiva or scleral icterus Neck no JVD Chest Wall inspection of chest normal Resp normal respiratory effort and clear to auscultation bilaterally Cardio regular rate and regular rhythm GI normal to inspection, nondistended, normoactive bowel sounds, non-tender and non-distended Palpation: soft; Negative for tender or guarding Back/Spine no CVA tenderness Extremity normal to inspection Neuro Sensorium / Orientation: alert Skin no rashes or lesions noted and no wounds MDM MDM MDM Narrative Medical decision making narrative: Patient's blood work shows normal CBC. Electrolytes are also unremarkable. Calcium is minimally elevated which is chronic. Urine shows red cells but no sign of infection. CT scan shows multip le renal stones as well as a large proximal left ureteral stone. With minimal left hydronephrosis. This leads me to believe that this stone is not causing full obstruction. This is also consistent with not having significant pain. I think this patient can go home with close follow-up. I explained that his stone is quite large and there is a good chance he will need a procedure to have this removed. I will write for some pain meds, meds for nausea in case the symptoms develop but he is really not hurting much now. I will also write for Flomax for a short period of time. We discussed returning with pain, vomiting, fevers or other concerns. Lab Data Attestation: I reviewed the patient's lab results. Labs: Laboratory Results - last 24 hr 06/21/21 06/21/21 06/21/21 10:58 11:00 11:00 WBC 8.9 RBC 5.00 Hgb 15.9 Hct 47.7 MCV 95.4 H MCH 31.8 MCHC 33.3 RDW Std Deviation 52.8 H RDW Coeff of Christoph 14.9 H Plt Count 328 MPV 9.1 Immature Gran % (Auto) 0.300 Neut % (Auto) 67.5 Lymph % (Auto) 23.0 [place]ferro % (Auto) 7.9 Eos % (Auto) 0.7 Baso % (Auto) 0.6 Absolute Neuts (auto) 6.0 Absolute Lymphs (auto) 2.06 Nucleated RBC % 0 Sodium 137 Potassium 3.8 Chloride 104 Carbon Dioxide 26.0 Anion Gap 7 BUN 15 Creatinine 1.08 Estim Creat Clear Calc 94.90 Est GFR (MDRD) Af Amer 96 Est GFR (MDRD) Non-Af 80 BUN/Creatinine Ratio 13.9 Glucose 71 L Calcium 10.7 H Urine Color Flora Urine Clarity Cloudy Urine pH 5.0 Ur Specific [place] 1.015 Urine Protein 100 H Urine Glucose (UA) Normal Urine Ketones 5 H Urine Occult Blood 250 H Urine Nitrite Negative Urine Bilirubin Negative Urine Urobilinogen Normal Ur Leukocyte Esterase 25 H Urine RBC 50-100 SEEN Urine WBC 0 SEEN Ur Squamous Epith Cells 0-5 SEEN Urine Bacteria RARE Urine Mucus 0 SEEN Radiography Diagnostic Testing: Clinical Impression(s) from Imaging Studies Abdomen/Pelvis CT 06/21/21 11:03 IMPRESSION: 1. 7.8 x 5.4 mm partially obstructing calculus in the left UPJ causing minimal left hydronephrosis. 2. 4 mm and 2 mm adjacent nonobstructing calculi in the left lower renal pole, 2 mm nonobstructing calculus in the midportion of the left kidney and 1 mm nonobstructing calculus in the left upper renal infundibulum. 3. 1 mm nonobstructing calculus in the middle infundibulum the right kidney. No hydronephrosis. 4. 2.8 x 2.2 cm solid mass in the right adrenal gland and 1.5 x 1 cm solid mass in the left adrenal gland. This is unchanged when compared to CTA chest of 10/03/2020. ACR White Paper guidelines (Gustavo et al. JACR 2017; 14(8):9713-0063) recommend a low dose, non-contrast adrenal CT or chemical-shift adrenal MRI follow-up study. 5. Ill-defined hypodense lesion in the left upper renal parenchyma is presumably cyst. This has a CT number of 12.80 [place] units. This is unchanged. ACR White Paper guidelines (Hertracy, et al. JACR 2018; 15(2):264-273) suggest no follow-up is necessary. 6. Pronounced L5-S1 disc space height narrowing with endplate sclerosis, posterior annular tear with minimal escape of degenerative vacuum phenomenon behind the lower L4 vertebral body, moderately pronounced stenosis of the right L5-S1 intervertebral neural foramen and moderate stenosis of the left L5-S1 intervertebral neural foramen. Electronically Signed: Vernon Willard MD at 11:53 EST , Discharge Plan Triage Chief Complaint: Flank Pain ED Provider: Felipe Kaiser Dx/Rx/DC Orders Clinical Impression: Kidney stone on left side, Hematuria Instructions: ED Kidney Stone w/ Colic Prescriptions: New oxycodone-acetaminophen [Percocet] 5-325 mg tablet 1 tab PO Q6H PRN (Reason: pain) 3 Days Qty: 10 RF: 0 ondansetron 4 mg tablet,disintegrating 4 mg PO Q8H PRN (Reason: nausea and vomiting) Qty: 10 RF: 0 tamsulosin [Flomax] 0.4 mg capsule 0.4 mg PO DAILY Qty: 7 RF: 0 No Action levothyroxine 125 MCG tablet 125 mcg PO DAILY RF: 0 multivitamin [Daily Multiple] 1 EACH tablet 1 ea PO DAILY RF: 0 mesalamine [Apriso] 375 MG capsule,extended release 24hr 1 cap PO DAILY RF: 0 mercaptopurine 50 MG tablet 50 mg PO DAILY RF: 0 ustekinumab [Stelara] 90 MG/M syringe 90 mg IM DAILY RF: 0 losartan 50 mg tablet 50 mg PO DAILY RF: 0 prednisone 10 mg tablet 10 mg PO DAILY RF: 0 indapamide 2.5 mg tablet 2.5 mg PO DAILY RF: 0 diltiazem HCl 240 mg capsule,extended release 24hr 240 mg PO DAILY RF: 0 dicyclomine 20 mg tablet 20 mg PO PRN PRN (Reason: Cramps) RF: 0 metoprolol succinate 25 mg tablet extended release 24 hr 25 mg PO DAILY RF: 0 cyclobenzaprine 5 mg tablet 5 mg PO PRN PRN (Reason: Pain) RF: 0 Primary Care Provider: Marliyn Mock NP Referrals: Mauri Larson MD [STAFF PHYSICIAN] - As soon as possible Marilyn Mock NP, [employer] [Primary Care Provider] - Disposition Disposition: Home, Self Care
[2021-06-21 11:22] LABS: Red Blood Cells-Urine 50-100 SEEN /hpf (0-5)
[2021-06-21 11:23] LABS: Bacteria RARE /hpf (None Seen); Squamous Epithelial Cells - UA 0-5 SEEN /hpf (0-5)
[2021-06-21 11:29] LABS: Anion Gap 7 (5-15); BUN 15 mg/dL (7-18); BUN/Creat Ratio 13.9 RATIO (10-20); Calcium,Total 10.7 mg/dL (8.5-10.1); Chloride 104 mmol/L (98-107); Creatinine, Serum 1.08 mg/dL (0.70-1.30); EST Glomerular Filtration Rate 80 mL/min (>60); Est Glom Filt Rate - Afr Amer 96 mL/min (>60); Glucose 71 mg/dL (74-106); Potassium 3.8 mmol/L (3.5-5.1); Sodium Level 137 mmol/L (136-145)
[2021-06-21 13:42] VITALS: PULSE 78; RESP 16; O2SAT 98
== END 2021-06-21 13:42 | disposition home or self-care (01) ==
PROVIDERS: Emergency Provider Emergency Medicine; PCP Nurse Practitioner Family; Visit Provider Emergency Medicine
DX: N13.2 Hydronephrosis with renal and ureteral calculous obstruction (principal); K50.90 Crohn's disease, unspecified, without complications; R31.9 Hematuria, unspecified; I25.2 Old myocardial infarction; Z79.890 Hormone replacement therapy; Z79.52 Long term (current) use of systemic steroids; Z79.899 Other long term (current) drug therapy; Z87.442 Personal history of urinary calculi; Z86.718 Personal history of other venous thrombosis and embolism
CPT/HCPCS: 74176; 80048; 81001; 85025; 96360; 99283; J7030; A4216

== ENCOUNTER → 2021-10-18 | Outpatient (CLI) | payer MEDICAID, SELFPAY ==
[2021-10-18 15:12] LABS: Erythrocyte Sedimentation Rate 15 mm/hr (0-20)
[2021-10-18 15:14] LABS: Hematocrit 40.8 % (40-54); Hemoglobin 13.4 g/dL (13.0-16.5); Mean Corp Hgb Conc 32.8 g/dL (32-36); Mean Corpuscular Hgb 31.8 pg (27.0-32.0); Mean Corpuscular Volume 96.7 fL (80-94); Mean Platelet Vol. 9.9 fl (6.2-12.0); Platelet Count 332 K/mm3 (150-450); RBC Distribution Width CV 14.7 % (11.6-14.6); RBC Distribution Width SD 51.6 fl (35.1-43.9); Red Blood Count 4.22 M/mm3 (4.6-6.2); White Blood Count 8.2 K/mm3 (4.4-11.0)
[2021-10-18 15:45] LABS: AST(SGOT) 30 U/L (15-37); Alanine Aminotransfer ALT/SGPT 45 U/L (16-61); Albumin, Serum 3.7 g/dL (3.2-5.0); Alkaline Phosphatase 141 U/L (45-117); Anion Gap 7 (5-15); BUN 15 mg/dL (7-18); BUN/Creat Ratio 15.2 RATIO (10-20); CRP < 2.90 mg/L (0.0-3.0); Calcium,Total 10.4 mg/dL (8.5-10.1); Chloride 106 mmol/L (98-107); Creatinine, Serum 0.98 mg/dL (0.70-1.30); EST Glomerular Filtration Rate 88 mL/min (>60); Est Glom Filt Rate - Afr Amer 107 mL/min (>60); Globulin 3.6 g/dL (2.2-4.2); Glucose 102 mg/dL (74-106); Potassium 4.5 mmol/L (3.5-5.1); Protein, Total 7.3 g/dL (6.4-8.2); Sodium Level 138 mmol/L (136-145)
== END | disposition home or self-care (01) ==
PROVIDERS: PCP Nurse Practitioner Family; Referring Provider Internal Medicine Gastroenterology; Visit Provider Internal Medicine Gastroenterology
DX: K51.911 Ulcerative colitis, unspecified with rectal bleeding (principal)
CPT/HCPCS: 36415; 80053; 85027; 85652; 86140

== ENCOUNTER → 2022-12-26 | Outpatient (CLI) | payer OTHER, MEDICAID, SELFPAY ==
[2022-12-26 17:31] LABS: Hematocrit 47.3 % (40-54); Hemoglobin 15.3 g/dL (13.0-16.5); Mean Corp Hgb Conc 32.3 g/dL (32-36); Mean Corpuscular Hgb 31.7 pg (27.0-32.0); Mean Corpuscular Volume 97.9 fL (80-94); Mean Platelet Vol. 9.9 fl (6.2-12.0); Platelet Count 325 K/mm3 (150-450); RBC Distribution Width CV 13.4 % (11.6-14.6); RBC Distribution Width SD 49.1 fl (35.1-43.9); Red Blood Count 4.83 M/mm3 (4.6-6.2); White Blood Count 9.5 K/mm3 (4.4-11.0)
[2022-12-26 17:58] LABS: Erythrocyte Sedimentation Rate 17 mm/hr (0-20)
[2022-12-26 18:10] LABS: AST(SGOT) 61 U/L (15-37); Alanine Aminotransfer ALT/SGPT 95 U/L (16-61); Alkaline Phosphatase 150 U/L (45-117); Anion Gap 11 (5-15); BUN 16 mg/dL (7-18); CRP < 2.90 mg/L (0.0-3.0); Calcium,Total 10.7 mg/dL (8.5-10.1); Chloride 105 mmol/L (98-107); EST Glomerular Filtration Rate 86 mL/min (>60); Est Glom Filt Rate - Afr Amer 104 mL/min (>60); Globulin 3.9 g/dL (2.2-4.2); Glucose 129 mg/dL (74-106); Potassium 3.7 mmol/L (3.5-5.1); Protein, Total 7.9 g/dL (6.4-8.2); Sodium Level 137 mmol/L (136-145)
== END | disposition home or self-care (01) ==
PROVIDERS: PCP Nurse Practitioner Family; Referring Provider Internal Medicine Gastroenterology; Visit Provider Internal Medicine Gastroenterology
DX: K51.90 Ulcerative colitis, unspecified, without complications (principal)
CPT/HCPCS: 36415; 80053; 85027; 85652; 86140

== ENCOUNTER 2023-03-05 15:09 | Outpatient (CLI) | payer OTHER, MEDICAID, SELFPAY | END 2023-03-05 23:59 | disposition home or self-care (01) | LOC: MTLAB 15:11 | PROVIDERS: PCP Nurse Practitioner Family; Referring Provider Internal Medicine Gastroenterology; Visit Provider Internal Medicine Gastroenterology | DX: K51.90 Ulcerative colitis, unspecified, without complications (principal) | CPT/HCPCS: 36415 ==

== ENCOUNTER 2025-03-05 09:23 | Emergency (ER) | payer OTHER, SELFPAY ==
[2025-03-05 09:24] VITALS: BP 157/101; PULSE 79; RESP 15; TEMP 37; O2SAT 100; BMI 29.7
--- NOTE | 2025-03-05 09:33 | EKG12_ITS ---
Test Reason : CHEST PAIN Blood Pressure : */* mmHG Vent. Rate : 66 BPM Atrial Rate : 66 BPM P-R Int : 150 ms QRS Dur : 84 ms QT Int : 398 ms P-R-T Axes : 47 -19 30 degrees QTcB Int : 417 ms Normal sinus rhythm Normal ECG Confirmed by JACQUES DASILVA, BLANCA ([id number]), associate editor VALENTIN CHOPRA ([id number]) on 03/08/2025 1:19:29 PM Referred By: Confirmed By: BLANCA HANNA MD
--- NOTE | 2025-03-05 09:34 | ED.VIS.CHEST ---
HPI History of Present Illness Chief Complaint: Chest Pain Narrative Narrative: Patient is a 44-year-old male with a past medical history of alcohol abuse drinks daily several beers, chews tobacco, DVT, anemia, heart attack, Crohn's disease who presented to the emergency department chief complaint of generalized not feeling 1 since Saturday. When inquiring about his DVT he is a poor historian and states that he is not sure exactly what caused this he states that he has just recently been back on his medications as he was out of insurance for the past several months. He states that his blood clots were approximately 5 years ago. When inquiring about his heart attack he states that this was from dehydration and states that there was no blockages and did not have any stents placed. Patient states that he is just very fatigued and overall does not feel well and cannot specifically pinpoint 1 thing in particular. He states that his last drink was 8 PM last night. [facility] Medical History Hypothyroid DVT (deep venous thrombosis) Past heart attack Crohn's disease Home Medications ?Medication ?Instructions ?Recorded ?Last Taken ?Type levothyroxine 125 mcg tablet 125 mcg PO DAILY 01/17/15 12/29/17 History multivitamin (Daily Multiple 1 ea PO DAILY 09/16/15 12/29/17 History tablet) mesalamine 0.375 gram 1 cap PO DAILY 01/31/17 12/29/17 History capsule,extended release 24 hr (Apriso) mercaptopurine 50 mg tablet 50 mg PO DAILY 12/29/17 12/29/17 History ustekinumab 90 mg/mL subcutaneous 90 mg IM DAILY 12/29/17 10/30/17 History syringe (Stelara) cyclobenzaprine 5 mg tablet 5 mg PO PRN PRN Pain 10/03/20 Unknown History dicyclomine 20 mg tablet 20 mg PO PRN PRN Cramps 10/03/20 Unknown History diltiazem HCl 240 mg 240 mg PO DAILY 10/03/20 Unknown History capsule,extended release 24 hr indapamide 2.5 mg tablet 2.5 mg PO DAILY 10/03/20 Unknown History losartan 50 mg tablet 50 mg PO DAILY 10/03/20 Unknown History metoprolol succinate 25 mg 25 mg PO DAILY 10/03/20 Unknown History tablet,extended release 24 hr prednisone 10 mg tablet 10 mg PO DAILY 10/03/20 Unknown History ondansetron 4 mg disintegrating 4 mg PO Q8H PRN nausea and 06/21/21 Unknown Rx tablet vomiting #10 tabs oxycodone-acetaminophen 5 mg-325 1 tab PO Q6H PRN pain 3 days #10 06/21/21 Unknown Rx mg tablet (Percocet) tabs tamsulosin 0.4 mg capsule (Flomax) 0.4 mg PO DAILY #7 caps 06/21/21 Unknown Rx Allergy/AdvReac Type Severity Reaction Status Date / Time Penicillins Allergy Hives Verified 03/05/25 09:24 Social History Smoking Status: Never smoker ROS ROS ED ROS Narrative Constitutional: Complains of chills denies any fevers, headaches Eyes: Denies double vision Cardiovascular: Complains of chest discomfort in the center of his chest states that does not radiate aware nothing makes this better or worse has been constant denies palpitations Respiratory: Denies coughing wheezing shortness of breath Abdomen: Denies abdominal pain complaints and nausea and diarrhea : Denies any urinary symptoms Neurological: Denies any numbness, weakness, tingling Musculoskeletal: Denies back pain Skin: Denies any rashes or lesions EXAM Physical Exam Narrative Exam Narrative: General: Patient was lying in bed rest comfortably did not appear to be in acute distress Head: Atraumatic, normocephalic Eyes: PERRL bilaterally, EOMI bilateral, no conjunctival injection noted Neck: Soft, supple, trachea midline Cardiovascular: Regular rate and rhythm Respiratory: Clear to auscultation bilaterally Abdomen: Soft, nondistended, no tenderness to palpation Extremities: +5/5 strength in the bilateral upper and lower extremities Neurological: Patient is following commands knew that he was at [facility] the year is 2024 Skin: Warm, dry, intact no rashes or lesions noted Const Vital Signs: 03/05/25 09:24 03/05/25 09:30 03/05/25 09:32 Temperature 98.6 F Temperature Source Oral Pulse Rate 79 Respiratory Rate 15 Respiratory Effort Normal Non-Labored Normal Non-Labored Respiratory Pattern Normal Normal Blood Pressure 157/101 H Blood Pressure Mean 119 Pulse Ox 100 Oxygen Delivery Method Room Air 03/05/25 09:33 03/05/25 11:23 03/05/25 12:00 Temperature Temperature Source Pulse Rate 57 L 68 Respiratory Rate 21 H 16 Respiratory Effort Respiratory Pattern Blood Pressure 155/101 H 156/99 H Blood Pressure Mean 119 118 Pulse Ox 97 99 Oxygen Delivery Method Room Air Room Air Room Air MDM MDM MDM Narrative Medical decision making narrative: Patient is a 44-year-old male who presents to the emergency department with a chief complaint of generalized not feeling well. On the differential diagnose includes but not limited to ACS, pneumonia, pneumothorax, electrolyte abnormality. Once workup is obtained and reviewed he will be reevaluated. Patient CBC reviewed and showed a white count of 12,000 and likely reactive, he was 16.1, plate count of 351. Patient sodium normal 133, Tessman normal 4.6, creatinine 0.88. Patient's troponin was 9 with a delta troponin of 9, EKG reviewed showed sinus rhythm with a rate of 66 bpm MS interval 150. Patient TSH normal at 1.54 free T41.80 And free T3 was normal at 3.9. Patient chest x-ray reviewed by myself by radiology showed no acute cardiopulmonary processes. On reevaluation the patient and he is feeling better he would like to go home at this point time. He is vies follow-up his doctor in outpatient setting and return with worsening symptoms or concerns. He is agreeable to plan all questions earns answered he is discharged home in stable condition Lab Data Labs: Laboratory Results - last 24 hr 03/05/25 03/05/25 09:35 11:30 WBC 12.3 H RBC 5.02 Hgb 16.1 Hct 48.2 MCV 96.0 H MCH 32.1 H MCHC 33.4 RDW Std Deviation 46.6 H RDW Coeff of Christoph 13.0 Plt Count 351 MPV 9.2 Immature Gran % (Auto) 0.600 Neut % (Auto) 76.6 H Lymph % (Auto) 14.1 L [place] % (Auto) 8.1 Eos % (Auto) 0.2 Baso % (Auto) 0.4 Absolute Neuts (auto) 9.5 H Absolute Lymphs (auto) 1.74 Nucleated RBC % 0 Sodium 133 Potassium 4.6 Chloride 98 Carbon Dioxide 21.1 Anion Gap 14 BUN 14 Creatinine 0.88 Estim Creat Clear Calc 124.35 Est GFR (MDRD) Non-Af 107 BUN/Creatinine Ratio 16.0 Glucose 113 H Calcium 11.5 H Troponin T High Sens 9 Troponin T Hi Sens 2 Hr 9 TSH 1.540 Free T4 1.80 H Free T3 pg/dL 3.9 Radiography Diagnostic Testing: Clinical Impression(s) from Imaging Studies Chest X-Ray 03/05/25 09:35 IMPRESSION: No acute cardiopulmonary abnormalities. Reading Location: [facility] Discharge Plan Triage Chief Complaint: Chest Pain Other Complaint: General Illness ED Provider: Cj Reddy Dx/Rx/DC Orders Clinical Impression: Lightheaded, Weakness, Chest pain Prescriptions: No Action levothyroxine 125 MCG tablet 125 mcg PO DAILY multivitamin [Daily Multiple] 1 EACH tablet 1 ea PO DAILY mesalamine [Apriso] 375 MG capsule,extended release 24hr 1 cap PO DAILY mercaptopurine 50 MG tablet 50 mg PO DAILY Patient Comments: ustekinumab [Stelara] 90 MG/M syringe 90 mg IM DAILY Patient Comments: losartan 50 mg tablet 50 mg PO DAILY prednisone 10 mg tablet 10 mg PO DAILY indapamide 2.5 mg tablet 2.5 mg PO DAILY Patient Comments: take 1 tablet by mouth daily every morning for hypertension diltiazem HCl 240 mg capsule,extended release 24hr 240 mg PO DAILY dicyclomine 20 mg tablet 20 mg PO PRN PRN (Reason: Cramps) metoprolol succinate 25 mg tablet extended release 24 hr 25 mg PO DAILY cyclobenzaprine 5 mg tablet 5 mg PO PRN PRN (Reason: Pain) oxycodone-acetaminophen [Percocet] 5-325 mg tablet 1 tab PO Q6H PRN (Reason: pain) 3 Days Qty: 10 0RF ondansetron 4 mg tablet,disintegrating 4 mg PO Q8H PRN (Reason: nausea and vomiting) Qty: 10 0RF tamsulosin [Flomax] 0.4 mg capsule 0.4 mg PO DAILY Qty: 7 0RF Primary Care Provider: Marilyn Mock NP Referrals: Marilyn Mock NP, [employer] REPRESENTATIVE[facility] [Primary Care Provider, Family Practice] Activity Restrictions/Additional Instructions: Follow-up with your doctor in outpatient setting. Your blood work did not show any acute findings here today your chest x-ray was normal. Return with worsening symptoms or any other concerns Print Language: Malagasy Disposition Disposition: Home, Self Care
--- NOTE | 2025-03-05 09:35 | RAD_ITS ---
PROCEDURE: CHEST PA AND LATERAL N/A REASON FOR EXAM: CHEST PAIN TECHNIQUE: Procedure Code: RADCXR Modality: DX Procedure: CHEST PA AND LATERAL COMPARISON: CT chest 12/03/2020. FINDINGS: Hardware: None. Heart: No cardiomegaly. Mediastinum: Unremarkable. Lungs: Clear. No pleural effusion or pneumothorax. Bones: No acute bony abnormalities. RAD/Chest PA and Lateral IMPRESSION: No acute cardiopulmonary abnormalities. Reading Location: [id number]
[2025-03-05 09:43] LABS: Hematocrit 48.2 % (40-54); Hemoglobin 16.1 g/dL (13.0-16.5); Immature Granulocytes Count 0.070 X10^3/uL (0.0-0.0); Mean Corp Hgb Conc 33.4 g/dL (32-36); Mean Corpuscular Volume 96.0 fL (80-94); Mean Platelet Vol. 9.2 fl (6.2-12.0); NRBC Flagged by Analyzer 0 % (0-5); Platelet Count 351 K/mm3 (150-450); RBC Distribution Width CV 13.0 % (11.6-14.6); RBC Distribution Width SD 46.6 fl (35.1-43.9); Red Blood Count 5.02 M/mm3 (4.6-6.2); White Blood Count 12.3 K/mm3 (4.4-11.0)
[2025-03-05] MEDS: 0.9% Normal Saline (1000mL) 1,000 ML 999 ML IV (09:49)
[2025-03-05 10:23] LABS: Anion Gap 14 (5-15); BUN 14 mg/dL (4-19); BUN/Creat Ratio 16.0 RATIO (10-20); Calcium,Total 11.5 mg/dL (7.6-11.0); Carbon Dioxide 21.1 mmol/L (21.0-32.0); Chloride 98 mmol/L (98-108); Estimated Creatinine Clearance 124.35 ml/min (50-250); Free T3 3.9 pg/mL (2.18-3.98); Glucose 113 mg/dL (70-99); Potassium 4.6 mmol/L (3.3-5.1); Troponin T High Sensitivity 9 ng/L (<=22)
[2025-03-05 11:23] VITALS: BP 155/101; PULSE 57; RESP 21; O2SAT 97
[2025-03-05 11:58] LABS: Troponin T High Sens 2 HR 9 ng/L (<=22)
[2025-03-05 12:00] VITALS: BP 156/99; PULSE 68; RESP 16; O2SAT 99
[2025-03-05 12:38] VITALS: BP 156/99; PULSE 68; RESP 16; TEMP 36.7; O2SAT 99
== END 2025-03-05 12:45 | disposition home or self-care (01) ==
PROVIDERS: Emergency Provider Emergency Medicine; PCP Nurse Practitioner Family; Visit Provider Emergency Medicine
DX: R07.9 Chest pain, unspecified (principal); Z86.718 Personal history of other venous thrombosis and embolism; R42 Dizziness and giddiness; R53.1 Weakness; E03.9 Hypothyroidism, unspecified; I25.2 Old myocardial infarction; F17.290 Nicotine dependence, other tobacco product, uncomplicated; F10.90 Alcohol use, unspecified, uncomplicated
CPT/HCPCS: 71046; 80048; 84439; 84443; 84481; 84484; 85025; 93005; 96360; 96361; 99285; A4216

== ENCOUNTER → 2025-03-10 | Outpatient (CLI) | payer OTHER, SELFPAY ==
[2025-03-10 15:19] LABS: Hematocrit 42.7 % (40-54); Hemoglobin 13.8 g/dL (13.0-16.5); Mean Corp Hgb Conc 32.3 g/dL (32-36); Mean Corpuscular Volume 99.3 fL (80-94); Mean Platelet Vol. 10.3 fl (6.2-12.0); Platelet Count 301 K/mm3 (150-450); RBC Distribution Width CV 13.0 % (11.6-14.6); RBC Distribution Width SD 47.7 fl (35.1-43.9); Red Blood Count 4.30 M/mm3 (4.6-6.2); White Blood Count 7.8 K/mm3 (4.4-11.0)
[2025-03-10 15:38] LABS: AST(SGOT) 62 U/L (<=37); Alanine Aminotransfer ALT/SGPT 69 U/L (<=46); Albumin, Serum 4.3 g/dL (3.5-5.0); Alkaline Phosphatase 127 U/L (40-129); Anion Gap 14 (5-15); BUN 11 mg/dL (4-19); BUN/Creat Ratio 12.6 RATIO (10-20); CRP < 3.00 mg/L (0.0-3.0); Calcium,Total 11.0 mg/dL (7.6-11.0); Carbon Dioxide 22.5 mmol/L (21.0-32.0); Chloride 101 mmol/L (98-108); Globulin 2.8 g/dL (2.2-4.2); Glucose 134 mg/dL (70-99); Potassium 4.0 mmol/L (3.3-5.1)
== END | disposition home or self-care (01) ==
LOC: MTLAB 12:50
PROVIDERS: PCP Nurse Practitioner Family; Referring Provider Internal Medicine Gastroenterology; Visit Provider Internal Medicine Gastroenterology
DX: K52.9 Noninfective gastroenteritis and colitis, unspecified (principal)
CPT/HCPCS: 36415; 80053; 85027; 85652; 86140